=== PATIENT | male | born 1990 | race Caucasian/White ===

== ENCOUNTER 2024-05-28 12:55 | Emergency (ER) | payer OTHER ==
[~2024-05-28] VITALS: Ht 185.4 cm; Wt 143.2 kg
[2024-05-28 12:59] VITALS: TEMP 98.5
[2024-05-28 15:37] VITALS: BP 180/104; PULSE 89
== END 2024-05-28 15:37 | disposition home or self-care (01) ==
LOC: COL.ER 12:55
DX: M50.90 Cervical disc disorder, unspecified, unspecified cervical region (principal); M51.9 Unspecified thoracic, thoracolumbar and lumbosacral intervertebral disc disorder